=== PATIENT | female | born 1995 | race Caucasian/White ===

== ENCOUNTER 2016-12-03 08:00 | Inpatient (IN) | payer MEDICAID ==
[2016-12-03] VITALS (8 sets, daily range): BP systolic 94–117; RESP 16–23; TEMP 98.3; Ht 162.6 cm; Wt 115.2 kg
[~2016-12-03] VITALS: Ht 162.6 cm; Wt 115.2 kg
[~2016-12-03 08:00] MED LIST: KETOROLAC 30 MG/ML VIAL IV ONE; MIDAZOLAM 2 MG/2 ML INJ IV ONE; ONDANSETRON 4 MG VIAL IV PUSH ONE; PHENYLEPHRINE 10 MG/ML VIAL IV ONE
[2016-12-03] MEDS: LACT RINGERS 1,000 ML IV SCH ×2 (09:45→16:31)
[2016-12-03] MEDS ORDERED: ONDANSETRON 4 MG VIAL IV PUSH PRN (09:50)
[2016-12-03] MEDS ORDERED: LIDOCAINE 1% BUFFERED 1 ML SYR INTRADERM PRN (09:50)
[2016-12-03] MEDS ORDERED: FAMOTIDINE 20 MG INJ IV PRN (09:50)
[2016-12-03] MEDS ORDERED: TERBUTALINE 1 MG/ML VIAL SUBQ PRN (09:50)
[2016-12-03] MEDS ORDERED: ACETAMINOPHEN 325 MG TAB PO PRN (09:50)
[2016-12-03] MEDS ORDERED: METOCLOPRAMIDE 10 MG/2 ML VIAL IV PUSH PRN (09:50)
[2016-12-03] MEDS ORDERED: LIDOCAINE 1% 30 ML PF INFILTRATE ONE (09:50)
[2016-12-03] MEDS ORDERED: OXYTOCIN 15 UNITS/250 ML NS 250 ML IV SCH ×2 (09:50)
[2016-12-03] MEDS ORDERED: ALU/MAG/SIM 30 ML UDC PO PRN (09:50)
[2016-12-03] MEDS ORDERED: FAMOTIDINE 20 MG TAB PO PRN (09:50)
[2016-12-03] MEDS ORDERED: CEFAZOLIN (LD/OB) 100 ML IV PRN (09:50)
[2016-12-03] MEDS ORDERED: PROMETHAZINE 25 MG/ML VIAL IV PRN ×2 (09:50→21:15)
[2016-12-03] MEDS ORDERED: DIPHENHYDRAMINE 50 MG/ML VIAL IV PRN (21:15)
[2016-12-03] MEDS ORDERED: BUTORPHANOL 1 MG/ML VIAL IV PRN (21:15)
[2016-12-03] MEDS ORDERED: OXYCODONE 5 MG TAB PO PRN (21:15)
[2016-12-03] MEDS ORDERED: SALINE FLUSH 10 ML FLUSH PRN (21:15)
[2016-12-03] MEDS ORDERED: DILAUDID 1 MG/ML AMP IV PRN (21:15)
[2016-12-03] MEDS ORDERED: NALOXONE 0.4 MG/ML AMP IV PRN (21:15)
[2016-12-03] MEDS ORDERED: ONDANSETRON 4 MG VIAL IV PRN ×3 (21:15→21:45)
[2016-12-03] MEDS ORDERED: MORPHINE 4 MG/ML SYR IV PRN ×2 (21:15)
[2016-12-03] MEDS ORDERED: MORPHINE 2 MG/ML SYR IV PRN ×2 (21:15)
[2016-12-03] MEDS ORDERED: MEPERIDINE 25 MG/ML IV PRN (21:15)
[2016-12-03] MEDS ORDERED: BISACODYL 10 MG SUPP RECTAL PRN (21:45)
[2016-12-03] MEDS ORDERED: TDaP 0.5 ML VIAL IM.VACC ONE (21:45)
[2016-12-03] MEDS ORDERED: MEASLES,MUMPS,RUBELLA VAC SUBQ.VACC ONE (21:45)
[2016-12-03] MEDS ORDERED: MAG HYDROX 30 ML UDC PO PRN (21:45)
[2016-12-04] VITALS (8 sets, daily range): BP systolic 103–127; RESP 16–24; TEMP 97.6–98.2
[2016-12-04] MEDS: LACT RINGERS 1,000 ML IV SCH ×2 (00:30→10:30)
[2016-12-04] MEDS ORDERED: MISSING DOSE XX ONE ×2 (00:45→08:00)
[2016-12-04] MEDS: CEFAZOLIN 2,000 MG in SODIUM CHLORIDE 0.9% 100 ML IV SCH ×2 (01:00→08:54)
[2016-12-04] MEDS: KETOROLAC 30 MG/ML VIAL IV SCH ×4 (01:20→17:51)
[2016-12-04] MEDS: OXYTOCIN 15 UNITS/250 ML NS 250 ML IV SCH ×2 (01:44→01:45)
[2016-12-04] MEDS ORDERED: SODIUM CHLORIDE 0.9% FLUSH BAG 500 ML IV SCH (06:00)
[2016-12-04] MEDS ORDERED: SALINE FLUSH 10 ML FLUSH SCH (08:00)
[2016-12-04] MEDS: DOCUSATE SOD 100 MG CAP PO SCH (09:00)
[2016-12-04] MEDS ORDERED: Ibuprofen 600 MG TAB ONE (17:54)
[2016-12-04] MEDS: Ibuprofen 600 MG TAB PO SCH (17:55)
[2016-12-04] MEDS: OXYCODONE/APAP 5/325 TAB PO PRN ×2 (19:01→23:08)
[2016-12-05] MEDS: Ibuprofen 600 MG TAB PO SCH ×4 (00:52→17:55)
[2016-12-05 05:28] VITALS: BP_SYST 118; RESP 18; TEMP 97.9
[2016-12-05] MEDS: DOCUSATE SOD 100 MG CAP PO SCH (08:08)
[2016-12-05] MEDS: OXYCODONE/APAP 5/325 TAB PO PRN ×2 (08:09→14:30)
[2016-12-05 09:47] VITALS: BP_SYST 117; RESP 18; TEMP 97.6
[2016-12-05] MEDS ORDERED: MEASLES,MUMPS,RUBELLA VAC SUBQ.VACC ONE (12:18)
[2016-12-05] MEDS ORDERED: TDaP 0.5 ML VIAL IM.VACC ONE (12:18)
[2016-12-05 15:33] VITALS: BP_SYST 117; RESP 18; TEMP 97.6
== END 2016-12-05 18:14 | disposition home or self-care (01) | DRG 766 ==
LOC: LD 09:00 → UNDOADMIN 09:23 → LD 14:23 → OB 12-04 02:09
PROVIDERS: ADMIT Obstetrics & Gynecology; ATTEND Obstetrics & Gynecology
PROC: 3E033VJ Introduction of Other Hormone into Peripheral Vein, Percutaneous Approach (ICD-10-PCS; principal; 2016-12-03)
PROC: 10D00Z1 Extraction of Products of Conception, Low, Open Approach (ICD-10-PCS; 2016-12-03)
DX: O48.0 Post-term pregnancy (principal); O32.4XX0 Maternal care for high head at term, not applicable or unspecified; Z3A.40 40 weeks gestation of pregnancy; Z37.0 Single live birth; Z23 Encounter for immunization
CPT/HCPCS: 82803; 85025; 90707; 96372

== ENCOUNTER 2016-12-10 22:59 | Emergency (ER) | payer MEDICAID ==
[2016-12-11] MEDS ORDERED: CEPHALEXIN 250 MG CAP ONE (01:30)
== END 2016-12-11 01:39 | disposition home or self-care (01) ==
LOC: ER 22:59
DX: O86.0 Infection of obstetric surgical wound (principal); L03.311 Cellulitis of abdominal wall
CPT/HCPCS: 36415; 80053; 85025

== ENCOUNTER 2016-12-14 00:26 | Emergency (ER) | payer MEDICAID ==
[2016-12-14] MEDS ORDERED: DIPHENHYDRAMINE 50 MG/ML VIAL ONE (02:04)
[2016-12-14] MEDS ORDERED: METHYLPRED SOD SUCC 125 MG/2 ML VIAL ONE (02:04)
[2016-12-14] MEDS ORDERED: FAMOTIDINE 20 MG INJ ONE ×2 (02:05→02:24)
[2016-12-14] MEDS ORDERED: SODIUM CHLORIDE 0.9% 50 ML IV ONE (02:23)
== END 2016-12-14 04:14 | disposition home or self-care (01) ==
LOC: ER 00:26
DX: L50.9 Urticaria, unspecified (principal); F17.210 Nicotine dependence, cigarettes, uncomplicated
CPT/HCPCS: 96374; 96375